=== PATIENT | female | born 1990 | race Two or more races ===

== ENCOUNTER 2016-02-25 09:10 | Observation (INO) | payer MEDICAID | END 2016-02-25 11:15 | disposition home or self-care (01) | DRG 566 | LOC: LDRP 09:10 | PROVIDERS: ADMIT Obstetrics & Gynecology; ATTEND Obstetrics & Gynecology | DX: O26.893 Other specified pregnancy related conditions, third trimester (principal); Z3A.36 36 weeks gestation of pregnancy | CPT/HCPCS: 59025; 76818; 81002; G0378 ==

== ENCOUNTER 2016-02-27 09:15 | Observation (INO) | payer MEDICAID | END 2016-02-27 10:50 | disposition home or self-care (01) | DRG 566 | LOC: LDRP 09:15 | PROVIDERS: ADMIT Obstetrics & Gynecology; ATTEND Obstetrics & Gynecology | DX: O42.913 Preterm premature rupture of membranes, unspecified as to length of time between rupture and onset of labor, third trimester (principal); Z3A.36 36 weeks gestation of pregnancy | CPT/HCPCS: 59025; 76818; 81002; G0378 ==

== ENCOUNTER 2016-03-07 16:10 | Observation (INO) | payer MEDICAID | END 2016-03-07 17:55 | disposition home or self-care (01) | DRG 566 | LOC: LDRP 16:10 | PROVIDERS: ADMIT Obstetrics & Gynecology; ATTEND Obstetrics & Gynecology | DX: O42.92 Full-term premature rupture of membranes, unspecified as to length of time between rupture and onset of labor (principal); R10.9 Unspecified abdominal pain; Z3A.38 38 weeks gestation of pregnancy | CPT/HCPCS: 59025; 76815; 81002; G0378 ==

== ENCOUNTER 2016-03-11 12:50 | Observation (INO) | payer MEDICAID | END 2016-03-11 14:20 | disposition home or self-care (01) | DRG 566 | LOC: LDRP 12:50 | PROVIDERS: ADMIT Obstetrics & Gynecology; ATTEND Obstetrics & Gynecology | DX: O36.8130 Decreased fetal movements, third trimester, not applicable or unspecified (principal); Z3A.38 38 weeks gestation of pregnancy | CPT/HCPCS: 59025; 76818; 81002; G0378 ==